=== PATIENT | female | born 1990 | race Caucasian/White ===

== ENCOUNTER 2016-04-03 19:36 | Emergency (ER) | payer MEDICARE ==
[2016-04-03] MEDS ORDERED: OPTIRAY 350 100 ML VIAL HMH IV ONE (19:37)
[2016-04-03] MEDS ORDERED: SODIUM CHLORIDE 0.9% 1,000 ML ONE (22:14)
[2016-04-03] MEDS ORDERED: KETOROLAC 30 MG/ML VIAL ONE (22:14)
== END 2016-04-03 23:34 | disposition home or self-care (01) ==
LOC: ER 19:36
DX: R10.31 Right lower quadrant pain (principal); R55 Syncope and collapse
CPT/HCPCS: 36415; 74177; 80053; 81001; 83690; 84703; 85025; 87880; 96361; 96374; 99284; J1885; Q9967